=== PATIENT | male | born 1945 | race African-American/Black ===

== ENCOUNTER 2017-07-23 15:27 | Inpatient (IN) | payer MEDICARE, OTHER ==
[~2017-07-23] VITALS: Ht 175.3 cm; Wt 75.7 kg
[2017-07-23 15:35] VITALS: BP 104/65
--- NOTE | 2017-07-23 15:44 | NUR ---
PT AMBULATED TO BED 12
--- NOTE | 2017-07-23 15:45 | NUR ---
PATIENT BIB DAUGHTER FOR NAUSEA AND VOMITING. PATIENT STATES HE HAS BEEN VOMITING FOR 2 WEEKS OFF AND ON. PATIENT EYE SCELRA APPEARS JAUNDICED, SOME TENTING NOTED IN SKIN TURGOR. PATIENT STATES HIS PRIMARY DOCTOR IS AWARE OF HIS CONDITION AND WOULD LIKE HIM ADMITTED TO THE HOSPITAL FOR FURTHER EVALUATION. LUNGS CLEAR BL; HR EVEN AND REGULAR; PT DENIES ANY FEVER, CP, SOB, OR COUGH AT THIS TIME; PATIENT STATES PAIN OF 0/10 AT THIS TIME; VSS; PATIENT POSITIONED FOR COMFORT; HOB ELEVATED; BEDRAILS UP X2; BED DOWN. ER MD MADE AWARE OF PT STATUS.
[2017-07-23] MEDS ORDERED: MORPHINE SULFATE 4 MG/ML SYR IVP ONE (17:30)
[2017-07-23] MEDS ORDERED: ONDANSETRON 4 MG/2 ML VIAL IVP ONE (17:30)
[2017-07-23] MEDS ORDERED: diphenhydrAMINE 50 MG/ML VIAL IVP ONE (17:30)
[2017-07-23 18:26] LABS: BASOPHILS # (AUTO) 0.1 K/uL (0.00-0.22); EOSINOPHILS # (AUTO) 0.1 K/uL (0-0.4); EOSINOPHILS % (AUTO) 0.8 % (0.0-4.0); HEMATOCRIT 36.5 % (36-52); HEMOGLOBIN 12.7 g/dL (12.0-18.0); LYMPHOCYTES # (AUTO) 0.6 K/uL (2.0-11.5); MEAN CORPUSCULAR HEMOGLOBIN 33 pg (27-31); MEAN CORPUSCULAR HGB CONC 35 g/dL (33-37); MEAN CORPUSCULAR VOLUME 95.4 fL (80-94); MONOCYTES % (AUTO) 10.6 % (1.7-9.3); NEUTROPHILS # (AUTO) 7.5 K/uL (1.8-7.7); NEUTROPHILS % (AUTO) 81.6 % (42.2-75.2); PLATELET COUNT (AUTO) 215 K/uL (140-450); RED BLOOD CELL COUNT(AUTO) 3.83 MIL/uL (4.20-6.10); RED CELL DISTRIBUTION WIDTH 17.1 % (11.6-13.7); WHITE BLOOD COUNT (AUTO) 9.2 K/uL (4.8-10.8)
[2017-07-23 18:44] LABS: CARBON DIOXIDE 23.1 mmol/L (21-32); CHLORIDE 100 mmol/L (98-107); CREATININE 1.7 mg/dL (0.7-1.3); GLUCOSE 92 mg/dL (74-106); POTASSIUM 4.1 mmol/L (3.5-5.1); SODIUM SERUM 133 mmol/L (136-145); UREA NITROGEN, BLOOD 16 mg/dL (7-18)
[2017-07-23 18:50] LABS: ALBUMIN 2.2 g/dL (3.4-5.0); AMYLASE 82 U/L (25-115); ASPARTATE AMINOTRANSFERASE 654 U/L (15-37); LIPASE 127 U/L (73-393); TOTAL BILIRUBIN 17.7 mg/dL (0.0-1.0)
[2017-07-23] MEDS ORDERED: NACL 0.9% 1,000 ML IV ONE (18:55)
--- NOTE | 2017-07-23 18:56 | NUR ---
CRITICAL LAB VALUE - LACTIC ACID 2.8; ED MADE AWARE
[2017-07-23] MEDS ORDERED: cefTRIAXone 1,000 MG VIAL ONE (19:03)
--- NOTE | 2017-07-23 19:10 | NUR ---
REPORT GIVEN TO BOX (CATHERINE)
--- NOTE | 2017-07-23 19:11 | NUR ---
REPORT RECEIVED FORM ERIC. PT RELAXING IN NO APPARENT DISTRESS WITH A SMILE ON FACE. NO SOB. WILL CONTINUE TO MONITOR
--- NOTE | 2017-07-23 19:25 | NUR ---
PT OFFERED URINAL , UNABLE TO PROVIED URINE AT THIS TIME.
[2017-07-23] MEDS ORDERED: metroNIDAZOLE 500 MG/NS PREMIX 100 ML IV ONE (19:55)
[2017-07-23] MEDS ORDERED: DOCUSATE SODIUM 100 MG GELCAP PO PRN (20:15)
[2017-07-23] MEDS ORDERED: HYDROcodone/APAP 7.5/325 MG 1 TAB PO PRN (20:15)
[2017-07-23] MEDS ORDERED: ONDANSETRON 4 MG/2 ML VIAL IM/IVP PRN (20:15)
[2017-07-23] MEDS ORDERED: ACETAMINOPHEN 325 MG TAB PO PRN (20:15)
--- NOTE | 2017-07-23 20:20 | NUR ---
CALLED TELE CHARGE-SHE WILL CALLBACK WITH A ROOM #
[2017-07-23 20:48] LABS: CHOL/HDL RATIO 10.8 (1-4.5); FREE T4 (FREE THYROXINE) 1.47 ng/dL (0.76-1.46); MAGNESIUM 2.1 mg/dL (1.8-2.4); PHOSPHORUS 3.7 mg/dL (2.5-4.9); THYROID STIMULATING HORMONE 3.01 uIU/mL (0.34-3.74)
[2017-07-23 20:50] VITALS: BP 114/73
[2017-07-23] MEDS: NACL 0.9% 1,000 ML IV SCH (20:50)
--- NOTE | 2017-07-23 20:50 | NUR ---
ADMITTED A 71M FROM ER. CAME BY LARON .ACCOMPANIED BY FAMILY MEMBERS. AWAKE ALERT AND ORIENTED X4. ON TELE MONITOR. ABLE TO TRANSFER FROM [facility] TO BED WITH SLIGHT BLE WEAKNESS. CAME DUE TO ABDOMINAL PAIN, N/V X FEW DAYS . WITH LOSS OF APPETITE. SKIN INTACT ,ONLY VERY DRY SKIN. PLAN OF CARE DISCUSSED AND VERBALIZED UNDERSTANDING. FAMILY TO BRING HOME MEDS TOMORROW. THE ONLY MEDICAL PROBLEM IS HYPERTENSION AND GOUT. BED ON LOWEST POSITION. FREQUENT ROUNDS NEEDED. CALL LIGHT AND URINAL PLACED WITHIN EASY REACH, WILL FOLLOW UP ADMIT ORDERS AND CONTINUE TO MONITOR.
--- NOTE | 2017-07-23 20:55 | NUR ---
Patient will be admitted to care of DR CORTES . Admited to TELE. Will go to room 124B. Belongings list completed. Report to CHANTAL DENNEY.
--- NOTE | 2017-07-23 20:59 | NUR ---
DR. CRAIN JUST CALLED AND HAS ORDER FOR UPPER ENDOSCOPY TOMORROW. PT/FAMILY AWARE.
--- NOTE | 2017-07-23 23:30 | NUR ---
AMY FROM US CALLED @2223, SHE SAID US ABDOMEN TO BE DONE AT [address] Xochitl CAMPOVERDE ,RESIDENT MADE AWARE.
[2017-07-24 00:10] VITALS: BP 121/73
--- NOTE | 2017-07-24 00:20 | NUR ---
PT KEPT NPO FOR UPPER ENDOSCOPY IN AM TODAY BY DR. CRAIN. CONSENT WAS SIGNED PT SAID HE ALREADY UNDERSTAND THE PROCEDURE.
[2017-07-24 00:31] LABS: APPEARANCE,URINE CLEAR (CLEAR); BILIRUBIN,URINE 3+ (NEGATIVE); BLOOD, URINE 1+ (NEGATIVE); COLOR,URINE BROWN (YELLOW); LEUKOCYTE ESTERASE ,URINE NEGATIVE (NEGATIVE); NITRITE, URINE NEGATIVE (NEGATIVE); PH,URINE 6.5 (5.0-9.0); UGLUCOSE TRACE (NEGATIVE)
[2017-07-24 00:37] LABS: BARBITURATE, URINE NEG. ng/ml (NEG <=200); BENZODIAZEPINE, URINE NEG. ng/mL (NEG <=200); CANNABINOID, URINE NEG. ng/mL (NEG <=50); COCAINE, URINE NEG. ng/mL (NEG <=300); OPIATE, URINE POS. ng/mL (NEG <=2000); PHENCYCLIDINE SCREEN,URINE NEG. ng/mL (NEG <=25)
[2017-07-24 00:41] LABS: RBC,URINE 11-20 (MOD) /HPF (0-5); WBC,URINE 0-5 (RARE) /HPF (0-5)
[2017-07-24] MEDS: NACL 0.9% 1,000 ML IV SCH ×3 (02:12→16:13)
--- NOTE | 2017-07-24 04:00 | NUR ---
PT ASSISTED UP ON SIDE OF BED. VOIDED WITH DARK COLORED URINE
[2017-07-24 04:35] VITALS: BP 103/62
--- NOTE | 2017-07-24 05:50 | NUR ---
SEQUENTIAL COMPRESSION DEVICE APPLIED TO BLE ORDERED.
--- NOTE | 2017-07-24 07:19 | NUR ---
ENDORSED PT IN STABLE CONDITION TO AM NURSE.
[2017-07-24 07:25] LABS: HEMATOCRIT 34.2 % (36-52); HEMOGLOBIN 11.9 g/dL (12.0-18.0); MEAN CORPUSCULAR HEMOGLOBIN 33 pg (27-31); MEAN CORPUSCULAR HGB CONC 35 g/dL (33-37); MEAN CORPUSCULAR VOLUME 95.1 fL (80-94); PLATELET COUNT (AUTO) 199 K/uL (140-450); WHITE BLOOD COUNT (AUTO) 9.2 K/uL (4.8-10.8)
[2017-07-24 07:43] LABS: ALBUMIN 1.9 g/dL (3.4-5.0); ANION GAP 11.6 (8-16); ASPARTATE AMINOTRANSFERASE 547 U/L (15-37); CARBON DIOXIDE 22.6 mmol/L (21-32); CHLORIDE 105 mmol/L (98-107); CREATININE 1.3 mg/dL (0.7-1.3); GLUCOSE 69 mg/dL (74-106); PHOSPHORUS 3.2 mg/dL (2.5-4.9); POTASSIUM 4.2 mmol/L (3.5-5.1); SODIUM SERUM 135 mmol/L (136-145); TOTAL BILIRUBIN 15.4 mg/dL (0.0-1.0); UREA NITROGEN, BLOOD 13 mg/dL (7-18)
[2017-07-24 08:00] VITALS: BP 106/63
--- NOTE | 2017-07-24 08:00 | NUR ---
INITIAL ASSESSMENT PERFORMED. ALERT AND ABLE TO EXPRESS NEEDS. NO ACUTE DISTRESS NOTED. LUNG SOUNDS CLEAR. BOWEL SOUNDS ACTIVE.LMB 07/22/17. USES URINAL. PATIENT CONTINENT OF B&B BUT REQUIRES SOME ASSISTANCE IN AMBULATING D/T GENERALIZED WEAKNESS.PATIENT STATED 6/10 PAIN TO RIGHT UPPER ABD QUAD. WILL MEDICATE. PATIENT HAS BEEN NPO SINCE MIDNIGHT.SKIN INTACT. PATIENT WITH RIGHT FOREARM 22G WITH NS RUNNING AT 100ML/HR. BOARD UPDATED. DISCUSSED PLAN OF CARE WITH PATIENT AT BEDSIDE PATIENT REQUIRES REINFORCEMENT OF TEACHING. PATIENT ORIENTED TO ROOM. CALL LIGHT WITHIN REACH. BED IN LOWEST POSITION. PATIENT PENDING EGD THIS AM . FREQUENT VISUAL CHECKS.WILL CONT TO MONITOR.
--- NOTE | 2017-07-24 08:04 | NUR ---
PATIENT HAS BEEN SCREENED AND CATEGORIZED HIGH RISK. PATIENT WILL BE SEEN WITHIN 1-2 DAYS OF ADMISSION. 07/24- [address], [facility]
[2017-07-24 08:09] LABS: BASOPHILS % (MANUAL) 0 % (0-2); EOSINOPHILS % (MANUAL) 2 % (0-4); LYMPHOCYTES % (MANUAL) 14 % (20-46); MONOCYTES % (MANUAL) 11 % (5-12)
[2017-07-24] MEDS ORDERED: fentaNYL 0.05 MG/ML VIAL ONE (09:39)
[2017-07-24] MEDS ORDERED: MIDAZOLAM 2 MG/2 ML VIAL ONE (09:40)
--- NOTE | 2017-07-24 10:35 | NUR ---
PATIENT LEFT TO EGD WITH OR NURSE. PATIENT IV SITE SL. PATENT AND INTACT. PATIENT LEFT UNIT WITHOUT DIFFICULTIES IN BED. TICKET TO RIDE. CONSENT AND PREOP CHECKLIST DONE.
[2017-07-24] MEDS ORDERED: LIDOCAINE VISCOUS 2% 20 ML UDC ONE (10:50)
--- NOTE | 2017-07-24 11:20 | NUR ---
PATIENT RETURNED FROM EGD. WITHOUT DIFFICULTIES. VSS. IVF RECONNECTED TO 100ML/HR OF NS. CALL LIGHT WITHIN REACH. WILL CONT TO MONITOR.
[2017-07-24 12:00] VITALS: BP 119/70
--- NOTE | 2017-07-24 12:28 | NUR ---
PENDING DIET ORDER AFTER EGD DONE. PATIENT WITH OPHTHALMOLOGIST RETINA SPECIALIST IN ROOM .
--- NOTE | 2017-07-24 13:20 | NUR ---
PATIENT RECEIVED CLEAR LIQUID DIET. TOLERATING WELL. WILL CONT TO MONITOR.
--- NOTE | 2017-07-24 14:48 | NUR ---
PATIENT IN BED WITH FAMILY AT BEDSIDE. NO ACUTE DISTRES NOTED. CALL LIGHT WITHIN REACH. WILL CONT TO MONITOR.
[2017-07-24 16:00] VITALS: BP 121/76
--- NOTE | 2017-07-24 17:41 | NUR ---
PATIENT IN BED WITH FAMILY AT BEDSIDE. PATIENT RESTING WITH EYES CLOSED. RESP EVEN AND UNLABORED. NO ACUTE DISTRESS. WILL CONT TO MONITOR.
--- NOTE | 2017-07-24 19:18 | NUR ---
ENDORSED REPORT TO POWDER OPERATOR NURSE AT BEDSIDE FOR CONTINUITY OF CARE. PATIENT STABLE.
--- NOTE | 2017-07-24 19:20 | NUR ---
RECEIVED PT FROM AM NURSE AT BEDSIDE FOR CONTINUITY OF CARE. INTRODUCED SELF TO PT AND UPDATED BOARD. PT IVF INFUSING WELL. IV LINE AT RT WRIST,22G. LINE INTACT AND PATENT. CLIENT LYING ON BED. NO SIGN OF DISTRESS NOTED. PT UPDATED WITH CURRENT PLAN OF CARE. PT VERBALIZED UNDERSTANDING OF TEACHING. ALL SAFETY MEASURE IN PLACE. PT STAB;E AT THIS TIME. WILL CONTINUE TO MONITOR.
[2017-07-24 20:00] VITALS: BP 120/69
--- NOTE | 2017-07-24 22:00 | NUR ---
PT SLEEPING AT THIS TIME. HELPED WITH URINAL. 250 ML OUTPUT NOTED. PT STABLE AT THIS TIME. WILL CONTINUE TO MONITOR.
[2017-07-25] VITALS: BP 117/71
[2017-07-25] MEDS: NACL 0.9% 1,000 ML IV SCH (00:22)
--- NOTE | 2017-07-25 00:30 | NUR ---
PT AWAKE . MADE AWARE ABOUT NPO STATUS. PT VERBALIZED THE UNDERSTANDING. PT HAS NO SIGN OF DISTRESS WILL CONTINUE TO MONITOR.
--- NOTE | 2017-07-25 02:00 | NUR ---
MADE ROUNDS. PT IS ASLEEP. NO S/S OF ANY DISCOMFORT NOR PAIN NOTED. WILL CONTINUE TO MONITOR.
[2017-07-25 04:00] VITALS: BP 119/72
--- NOTE | 2017-07-25 04:00 | NUR ---
PT VOIDING WELL ON URINAL WITH STANDBY ASSISTANCE.
[2017-07-25 06:23] LABS: BASOPHILS % (AUTO) 0.3 % (0.0-2.0); EOSINOPHILS # (AUTO) 0.2 K/uL (0-0.4); EOSINOPHILS % (AUTO) 1.8 % (0.0-4.0); HEMATOCRIT 33.2 % (36-52); HEMOGLOBIN 11.4 g/dL (12.0-18.0); LYMPHOCYTES # (AUTO) 0.9 K/uL (2.0-11.5); LYMPHOCYTES % (AUTO) 10.2 % (20.5-51.1); MEAN CORPUSCULAR HEMOGLOBIN 33 pg (27-31); MEAN CORPUSCULAR HGB CONC 34 g/dL (33-37); MEAN CORPUSCULAR VOLUME 95.4 fL (80-94); MONOCYTES % (AUTO) 11.2 % (1.7-9.3); NEUTROPHILS # (AUTO) 6.5 K/uL (1.8-7.7); NEUTROPHILS % (AUTO) 76.5 % (42.2-75.2); PLATELET COUNT (AUTO) 187 K/uL (140-450); RED BLOOD CELL COUNT(AUTO) 3.48 MIL/uL (4.20-6.10); RED CELL DISTRIBUTION WIDTH 17.1 % (11.6-13.7); WHITE BLOOD COUNT (AUTO) 8.5 K/uL (4.8-10.8)
--- NOTE | 2017-07-25 06:30 | NUR ---
PT ASLEEP. NO S/S OF ANY DISTRESS NOTED. WILL ENDORSED TO AM NURSE IN STABLE CONDITION.
[2017-07-25 06:40] LABS: ALBUMIN 1.8 g/dL (3.4-5.0); ANION GAP 13.4 (8-16); ASPARTATE AMINOTRANSFERASE 478 U/L (15-37); CARBON DIOXIDE 20.8 mmol/L (21-32); CHLORIDE 107 mmol/L (98-107); CREATININE 1.1 mg/dL (0.7-1.3); GLUCOSE 67 mg/dL (74-106); MAGNESIUM 1.8 mg/dL (1.8-2.4); POTASSIUM 4.2 mmol/L (3.5-5.1); SODIUM SERUM 137 mmol/L (136-145); TOTAL BILIRUBIN 14.7 mg/dL (0.0-1.0); UREA NITROGEN, BLOOD 10 mg/dL (7-18)
--- NOTE | 2017-07-25 07:05 | NUR ---
BLOOD GLUCOSE ON LAB 69. WENT TO CHECK PT. AWAKE,ALERT AND ORIENTED. BS CHECKED 70. WITH IVF INFUSING WELL. WILL ENDORSE TO AM NURSE.
[2017-07-25 07:14] LABS: PROTHROMBIN TIME 21.8 secs (10.8-13.4)
--- NOTE | 2017-07-25 07:15 | NUR ---
ENDORSED PT IN STABLE CONDITION TO AM NURSE.
--- NOTE | 2017-07-25 07:20 | NUR ---
RECEIVED REPORT FROM [employer] DRIVER NURSE, PT IS RESTING IN BED, SEMI FOWLERS POSITION, PT IS AAOX4, AMBULATES WITH ASSIST, NO S/S OF RESPIRATORY DISTRESS OR DISCOMFORT NOTED, SKIN IS INTACT, IV IS ON THE RT FA, PATENT, INTACT, FLUSHING WELL, DISCUSSED PLAN OF CARE WITH PT, PT VERBALIZED UNDERSTANDING, SAFETY/FALL PRECAUTIONS ARE IN PLACE, CALL LIGHT IS WITHIN REACH, WILL CONTINUE TO MONITOR.
[2017-07-25 08:00] VITALS: BP 130/74
[2017-07-25] MEDS ORDERED: PANTOPRAZOLE 40 MG TABEC PO SCH (09:00)
--- NOTE | 2017-07-25 09:10 | NUR ---
PT IS RESTING IN BED, PATIENT FAMILY IS AT BEDSIDE, NO S/S OF RESPIRATORY DISTRESS OR DISCOMFORT NOTED, CALL LIGHT WITHIN REACH.
[2017-07-25] MEDS ORDERED: PANT40EC28 PO (10:23)
--- NOTE | 2017-07-25 11:12 | NUR ---
DISCHARGE INSTRUCTIONS GIVEN, PT IV REMOVED, CATHETER TIP INTACT, ID WRIST BAND REMOVED. PT STABLE UPON DISCHARGE, ACCOMPANIED BY FAMILY.
--- NOTE | 2017-07-25 14:50 | NUR ---
PATIENT DISCHARGED. FAXED ER REPORT, H&P, PROGRESS NOTES, CONSULT AND DISCHARGE SUMMARY TO [facility] [phone] PHONE FABIOLA [phone]
[2017-07-26 06:20] LABS: T4 (THYROXINE) 11.6 ug/dL (4.5-12.0)
== END 2017-07-25 11:12 | disposition home or self-care (01) | DRG 444 ==
LOC: MED 15:27 → MTU 20:16
PROVIDERS: ADMIT Family Medicine Sports Medicine; ATTEND Family Medicine Sports Medicine
PROC: 0DB68ZX Excision of Stomach, Via Natural or Artificial Opening Endoscopic, Diagnostic (ICD-10-PCS; principal; 2017-07-23)
DX: K81.9 Cholecystitis, unspecified (principal); N17.0 Acute kidney failure with tubular necrosis; E43 Unspecified severe protein-calorie malnutrition; J90 Pleural effusion, not elsewhere classified; K74.60 Unspecified cirrhosis of liver; M10.9 Gout, unspecified; E02 Subclinical iodine-deficiency hypothyroidism; K29.70 Gastritis, unspecified, without bleeding; K29.80 Duodenitis without bleeding; F17.210 Nicotine dependence, cigarettes, uncomplicated; I12.9 Hypertensive chronic kidney disease with stage 1 through stage 4 chronic kidney disease, or unspecified chronic kidney disease; N18.9 Chronic kidney disease, unspecified; K27.9 Peptic ulcer, site unspecified, unspecified as acute or chronic, without hemorrhage or perforation; Z68.24 Body mass index [BMI] 24.0-24.9, adult; R74.0 Nonspecific elevation of levels of transaminase and lactic acid dehydrogenase [LDH]
CPT/HCPCS: 36415; 71045; 76705; 80053; 80305; 81001; 82140; 82150; 82948; 83036; 83605; 83690; 83735; 83880; 84100; 84436; 84439; 84443; 84479; 84484; 85025; 85610; 85730; 86677; 87040; 87081; 87086; 93005; 96365; 96367; 96375; 99285; J0696; J1200; J2250; J2270; J2405; J3010; J3490; J7030; J7060; Q0092